=== PATIENT | male | born 1975 | race Caucasian/White ===

== ENCOUNTER 2020-07-30 13:57 | Emergency (ER) | payer OTHER ==
[2020-07-30] MEDS ORDERED: Diphtheria,Pertussis(Acell),Tetanus Vaccine 0.5 ML Syringe IM ONE (14:33)
[2020-07-30] MEDS ORDERED: Bacitracin Oint 1 GM U/D Packet TOP ONE (14:33)
--- NOTE | 2020-07-30 14:40 | EDM.PDOC ---
ED HPI GENERAL MEDICAL PROBLEM - General Chief Complaint: Laceration Stated Complaint: CUT LEFT FINGER Time Seen by Provider: 07/30/20 14:30 Source of Information: Reports: Patient, Old Records, RN History Limitations: Reports: No Limitations - History of Present Illness INITIAL COMMENTS - FREE TEXT/NARRATIVE: 44 yo male cut his L lateral 5th finger before arrival. Tetanus is not UTD. Onset: Today, Sudden Onset Date: 07/30/20 Duration: Minutes: Location: Reports: Upper Extremity, Left Quality: Reports: Dull Severity: Mild Improves with: Reports: None Worsens with: Reports: None Context: Reports: Trauma Associated Symptoms: Reports: No Other Symptoms Treatments EDGE MOLDER: Reports: Other (see below) (none) - Related Data Allergies Allergy/AdvReac Type Severity Reaction Status Date / Time No Known Allergies Allergy Verified 07/30/20 14:21 Home Meds: Home Meds NK [No Known Home Meds] 07/30/20 [History] Past Medical History - Past Health History Medical/Surgical History: Denies Medical/Surgical History Social & Family History - Tobacco Use Tobacco Use Status *Q: Never Tobacco User - Caffeine Use Caffeine Use: Reports: Soda - Recreational Drug Use Recreational Drug Use: No ED ROS GENERAL - Review of Systems Review Of Systems: See Below Constitutional: Reports: No Symptoms Musculoskeletal: Reports: No Symptoms Skin: Reports: Wound (L 5th finger) Neurological: Reports: No Symptoms ED EXAM, SKIN/RASH Exam: See Below Exam Limited By: No Limitations General Appearance: Alert, WD/WN, No Apparent Distress Extremities: Other (Laceration L 5th finger, good flexion and extention strength. No numbness distal to wound. ) Neurological: Alert, Oriented, CN II-XII Intact, Normal Cognition, No Motor/Sensory Deficits Psychiatric: Normal Affect, Normal Mood Skin: Warm, Dry, Normal Color, No Rash, Wound/Incision (1 cm L 5th finger laceration with good wound edge approx., bleeding controlled. ) Location, Skin: Upper Extremity, Left Characteristics: Linear Associated features: No: Warmth, Tenderness, Lymphangitis Course - Vital Signs Text/Narrative:: wound cleaned and tube gauze applied per RN for relatively superficial wound. Last Recorded V/S: Last Vital Signs Temp 36.2 C 07/30/20 14:25 Pulse 68 07/30/20 14:25 Resp 16 07/30/20 14:25 BP 136/83 07/30/20 14:25 Pulse Ox 100 07/30/20 14:25 - Orders/Labs/Meds Orders: Active Orders 24 hr Category Date Time Status Vaccines to be Administered [RC] PER UNIT ROUTINE Care 07/30/20 14:33 Ordered Meds: Medications Discontinued Medications Generic Name Dose Route Start Last Admin Trade Name Ej PRN Reason Stop Dose Admin Bacitracin 1 dose 07/30/20 14:33 Bacitracin Oint 1 Gm TOP 07/30/20 14:34 ONETIME ONE Diphtheria/Tetanus/Acell Pertussis 0.5 ml 07/30/20 14:33 Boostrix IM 07/30/20 14:34 .ONCE ONE Departure - Departure Time of Disposition: 14:45 Disposition: Home, Self-Care 01 Condition: Good Clinical Impression: Finger laceration Qualifiers: Encounter type: initial encounter Finger: little finger Damage to nail status: without damage Foreign body presence: without foreign body Laterality: left Qualified Code(s): S61.217A - Laceration without foreign body of left little finger without damage to nail, initial encounter - Discharge Information *PRESCRIPTION DRUG MONITORING PROGRAM REVIEWED*: Not Applicable *COPY OF PRESCRIPTION DRUG MONITORING REPORT IN PATIENT LAKISHA: Not Applicable Instructions: Laceration Care, Adult, [id number] Referrals: PCP,None [Primary Care Provider] - Additional Instructions: Leave today's dressing on until bedtime tomorrow. Starting tomorrow night clean with soap and water twice daily. Dry. Apply antibiotic ointment and a new dressing. Recheck for signs of infection. Keep wound clean for at least 3 days. Sepsis Event Note (ED) - Evaluation Sepsis Screening Result: No Definite Risk - Focused Exam Vital Signs: Vital Signs Temp Pulse Resp BP Pulse Ox 07/30/20 14:25 36.2 C 68 16 136/83 100 07/30/20 14:19 36.2 C 68 16 136/83 100 - My Orders Last 24 Hours: My Active Orders 07/30/20 14:33 Vaccines to be Administered [RC] PER UNIT ROUTINE - Assessment/Plan Last 24 Hours: My Active Orders 07/30/20 14:33 Vaccines to be Administered [RC] PER UNIT ROUTINE
== END 2020-07-30 14:59 | disposition home or self-care (01) ==
LOC: JP.ED 13:57
DX: S61.217A Laceration without foreign body of left little finger without damage to nail, initial encounter (principal); Z23 Encounter for immunization; W45.8XXA Other foreign body or object entering through skin, initial encounter
CPT/HCPCS: 90471; 90715; 99282

== ENCOUNTER 2022-01-24 22:08 | Emergency (ER) | payer OTHER ==
[2022-01-24 23:47] LABS: ESTIMATED GFR 62 mL/min (>60)
== END 2022-01-25 02:25 | disposition home or self-care (01) ==
LOC: JP.ED 22:08
DX: F33.2 Major depressive disorder, recurrent severe without psychotic features (principal); R45.851 Suicidal ideations
CPT/HCPCS: 36415; 80053; 80143; 80179; 80307; 85025; 99283; 99284

== ENCOUNTER 2025-01-08 13:22 | Emergency (ER) | payer SELFPAY | END 2025-01-08 17:00 | disposition home or self-care (01) | LOC: JP.ED 13:22 | DX: M79.601 Pain in right arm (principal); M79.602 Pain in left arm | CPT/HCPCS: 72125; 76377; 99283 ==